=== PATIENT | male | born 1960 | race Caucasian/White ===

== ENCOUNTER 2018-05-25 20:37 | Emergency (ER) | payer OTHER, MEDICARE ==
--- NOTE | 2018-05-25 21:01 | ED GENERAL ADULT ---
History of Present Illness General Chief Complaint: General Adult Stated Complaint: PER WORKER,"HE CHOKED WHILE EATING DINNER" Source: patient, staff member Exam Limitations: poor historian Vital Signs & Intake/Output Vital Signs & Intake/Output Vital Signs Date Time Temp Pulse Resp B/P B/P Pulse O2 O2 Flow FiO2 Mean Ox Delivery Rate 05/256 98 Room Air 05/25 2104 98.0 37 18 142/79 98 Room Air ED Intake and Output 05/26 0000 05/25 1200 Intake Total Output Total Balance Patient 178 lb Weight Allergies Coded Allergies: MDX - Carbamazepine (From TEGRETOL) (UNKNOWN 05/07/15) MDX - Levetiracetam (From KEPPRA) (UNKNOWN 05/07/15) MDX - PCN (penicillin) (PCN (PENICILLIN)) (UNKNOWN 05/07/15) MDX - Zonisamide (ZONISAMIDE) (UNKNOWN 05/07/15) Triage Nurses Notes Reviewed? yes Onset: Abrupt Duration: hour(s): Timing: recent history Injury Environment: home Severity: mild, moderate Modifying Factors: Improves With: rest. HPI: 57 yo gentleman from [place] h/o mental retardation, presents after episode of choking at dinner. Per the staffer, "He was eating and then the food kind got stuck... but then it went down... and then he was fine... we just want him to get checked out." Since then, he has been eating fine, without choking. He is otherwise well. Past History Travel History Traveled to [place] past 21 day No Medical History Any Pertinent Medical History? 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 No Review of Systems Review of Systems Constitutional: Reports: no symptoms. EENTM: Reports: no symptoms. Respiratory: Reports: no symptoms. Cardiovascular: Reports: no symptoms. GI: Reports: no symptoms. Genitourinary: Reports: no symptoms. Musculoskeletal: Reports: no symptoms. Skin: Reports: no symptoms. Neurological/Psychological: Reports: no symptoms. Hematologic/Endocrine: Reports: no symptoms. Immunologic/Allergic: Reports: no symptoms. All Other Systems: Reviewed and Negative Physical Exam Physical Exam General Appearance: well developed/nourished, no apparent distress, alert, comfortable Comments: Physical Exam Physical Exam General Appearance: well developed/nourished, no apparent distress Head: atraumatic, normal appearance Eyes: Bilateral: normal appearance. Ears, Nose, Throat: normal pharynx, normal ENT inspection Neck: normal inspection, supple, full range of motion Respiratory: normal breath sounds, chest non-tender, no respiratory distress, quiet respiration, lungs clear Cardiovascular: regular rate/rhythm Gastrointestinal: normal bowel sounds, soft, non-tender, no organomegaly Back: normal inspection, normal range of motion Extremities: normal inspection, normal capillary refill, normal range of motion, no edema Neurologic/Psych: no motor/sensory deficits, awake, alert, oriented x 3 Skin: intact, normal color, warm/dry Core Measures ACS in differential dx? No CVA/TIA Diagnosis: No Sepsis Present: No Sepsis Focused Exam Completed? No Progress Differential Diagnoses I considered the following diagnoses in my evaluation of the patient: reflux, choking vs other. Plan of Care: Orders Procedure Date/time Status EKG 05/25 2102 Active pt observed in ED drinking fluids... which he did successfully... neuro exam is also benign.... pt safe for discharge.... advocated continued thickened feeds.... close follow up advised. Initial ED EKG: sinus, no acute change. Departure Departure Disposition: HOME OR SELF CARE Condition: Stable Clinical Impression Primary Impression: Choking episode Referrals: Ramirez Errol RAMOS (PCP/Family) Departure Forms: Customer Survey General Discharge Information Critical Care Note Critical Care Note Critical Care Time: non-applicable
[2018-05-25 21:04] VITALS: BP 142/79
== END 2018-05-25 21:27 ==
LOC: ERH 20:37
DX: T18.9XXA Foreign body of alimentary tract, part unspecified, initial encounter (principal)
CPT/HCPCS: 93005; 93010